=== PATIENT | male | born 1985 | race Caucasian/White ===

== ENCOUNTER 2017-05-24 16:19 | Emergency (ER) | payer SELFPAY ==
--- NOTE | ~2017-05-24 | ER ---
PATIENT'S NAME: JOHANNA AWAN [facility] AGE: 31 Y [address] ROOM: [place] [address] LOCATION: [facility] ADMIT DATE: 05/24/2017 ER/Outpatient Report DISCHARGE DATE: 05/24/2017 FAMILY PHYSICIAN: PHYSICIAN, NO ATTENDING PHYSICIAN: Cem Crowe Time of Arrival: 1619 hours. Time of Evaluation: 1715 hours. CHIEF COMPLAINT: Dental pain. HISTORY OF PRESENT ILLNESS: This is a 31-year-old male, who presents to the ER with dental pain started approximately one week ago. He states it is located in the left side of his face and it radiates up behind his left ear and causes a pain behind his left eye as well. He states that he has not ran any fevers, has had no cough, no sore throat, no difficulty breathing. He states he is unable to see a dentist, because of his insurance status. ALLERGIES: NO KNOWN ALLERGIES. MEDICATIONS: None. PAST MEDICAL HISTORY: 1. Hypertension. 2. Diabetes. 3. Bipolar. 4. He has had his adenoids and tonsils removed. 5. He has had pins placed in the thumb and a left knee scope. SOCIAL HISTORY: He does have a remote history of methamphetamine abuse 9 years ago. He drinks alcohol rarely. Denies any smoking use. REVIEW OF SYSTEMS: All systems were reviewed and were negative with the exception of those discussed in the HPI. PHYSICAL EXAMINATION: VITAL SIGNS: Weight 134 kg taken, blood pressure is 140/92, pulse 51, respirations 18, temperature 97.1 degrees tympanically, and saturations 95% on room air. Helen Coma Score is 15. PATIENT'S NAME: JOHANNA AWAN [facility] AGE: 31 Y [address] ROOM: [place] [address] LOCATION: [facility] ADMIT DATE: 05/24/2017 ER/Outpatient Report DISCHARGE DATE: 05/24/2017 FAMILY PHYSICIAN: PHYSICIAN, NO ATTENDING PHYSICIAN: Cem Crowe GENERAL: Alert, calm, well-developed, 31-year-old, in mild distress. HEENT. Head: Normocephalic. Eyes: Pupils are equal and reactive to light. Ears: TMs display good light reflexes bilaterally. Nose: Turbinates pink with no drainage. Throat: No exudates or erythema. He does have widespread dental decay. He does have tenderness over the gums around his lab back molar on the bottom left. There is no purulent drainage. He has no facial swelling noted. LUNGS: Clear to auscultation bilaterally. HEART: Bradycardic normal rhythm. EXTREMITIES: No clubbing, cyanosis, or edema. Full range of motion of all limbs. LABS AND X-RAYS: None were done. IMPRESSION: Left-sided dental pain. ASSESSMENT AND PLAN: I did give the patient 2 Percocet here in the emergency room for his pain. We will dismiss him to home with a prescription for amoxicillin and Percocet to use as directed. He needs to eat soft foods. He may alternate his pain medication as needed with ibuprofen and he needs to see a dentist as soon as possible. The patient understands and agrees with care. CHLOÉ TOVAR PA-C FOR DO BEATRICE WALDRON/lupe /[id number] d: t: 05/31/17 1359, OUTPATIENT REPORT
== END 2017-05-24 17:44 | disposition disaster alternative care site (69) ==
LOC: GMED 16:19
DX: K08.89 Other specified disorders of teeth and supporting structures (principal); I10 Essential (primary) hypertension; E11.9 Type 2 diabetes mellitus without complications; F31.9 Bipolar disorder, unspecified; Z98.890 Other specified postprocedural states; Z90.89 Acquired absence of other organs; Z87.898 Personal history of other specified conditions